=== PATIENT | male | born 1965 | race Caucasian/White ===

== ENCOUNTER 2020-06-22 03:12 | Emergency (ER) | payer OTHER ==
[~2020-06-22 03:12] MED LIST: AMLODIPINE BESY10 MG PO; FERROUS GLUCON324 M1 PO; K-TAB ER20 MEQ PO; LOPRESSOR 50 MG50 MG PO; MELOXICAM15 MG PO; NEURONTIN600 MG PO; NORCO 10-325 T1 EACH PO; PANTOPRAZOLE SO40 MG PO; PAXIL30 MG PO; PEPCID40 MG PO; ZESTORETIC 20-1 EAC1 PO
[2020-06-22] MEDS ORDERED: PERCOCET 10-321 EACH PO (05:27)
== END 2020-06-22 05:45 | disposition home or self-care (01) ==
LOC: ER1 03:12
DX: G89.4 Chronic pain syndrome (principal); M54.9 Dorsalgia, unspecified; I10 Essential (primary) hypertension; Z87.19 Personal history of other diseases of the digestive system
CPT/HCPCS: 99283

== ENCOUNTER → 2020-10-29 | Outpatient (CLI) | payer OTHER ==
[~2020-10-29] MED LIST changes: +PERCOCET 10-321 EACH PO
== END ==
LOC: KOH-I 08:00
DX: M54.2 Cervicalgia (principal); M47.814 Spondylosis without myelopathy or radiculopathy, thoracic region; M48.061 Spinal stenosis, lumbar region without neurogenic claudication; M51.37 Other intervertebral disc degeneration, lumbosacral region; M48.07 Spinal stenosis, lumbosacral region; M50.31 Other cervical disc degeneration, high cervical region; M48.02 Spinal stenosis, cervical region
CPT/HCPCS: 72141; 72146; 72148

== ENCOUNTER 2021-04-03 13:45 | Emergency (ER) | payer OTHER ==
[2021-04-03] MEDS ORDERED: HYDROCODON-ACE1 EAC4 PO (14:52)
== END 2021-04-03 15:46 | disposition home or self-care (01) ==
LOC: ER1 13:45
DX: G89.29 Other chronic pain (principal); M54.50 Low back pain, unspecified
CPT/HCPCS: 96372; 99283; J1100; J1885